=== PATIENT | male | born 1945 | race Caucasian/White ===

== ENCOUNTER 2018-05-18 18:01 | Inpatient (IN) ==
[2018-05-18] MEDS ORDERED: SODIUM CHLORIDE 0.9% 1,000 ML IV STA ×2 (18:46→20:13)
[2018-05-18 19:10] LABS: Basophils % 0.3 % (0.0-0.8); Eosinophils # 0.2 10*3/uL (0.0-0.87); Eosinophils % 2.4 % (0.00-10.9); Hematocrit 35.5 VOL% (42.0-52.0); Hemoglobin 11.9 GM/DL (14.0-18.0); Immature Granulocytes % 1.2 %; Immature Granulocytes Absolute 0.11 #; Lymphocytes # 0.8 10*3/uL (1.4-4.0); Lymphocytes % 9.1 % (21.2-54.2); Mean Corpuscular HGB Conc 33.5 GM/DL (32-36); Mean Corpuscular Hemoglobin 31 PG (27-34); Mean Corpuscular Volume 92.4 FL (87-102); Mean Platelet Volume 9.9 FL (9.6-12.0); Monocytes # 0.7 10*3/uL (0.11-0.8); Neutrophils # 7.1 10*3/uL (1.4-7.4); Platelet Count 199 T/CUMM (130-400); Red Blood Count 3.84 MC/CUMM (3.8-5.5); Red Cell Distribution Width 15.9 % (9.3-17.3); White Blood Count 8.9 T/CUMM (4-12)
[2018-05-18 19:20] LABS: INR 1.1; PT Patient Result 11.4 SECS
[2018-05-18 19:32] LABS: Albumin 2.8 G/DL (3.4-5.0); Bilirubin,Total 0.9 MG/DL (0.2-1.0); Calcium 8.8 MG/DL (8.5-10.1); Potassium 4.1 MMOL/L (3.5-5.1)
[2018-05-18 19:34] LABS: Lactic Acid 2.1 MMOL/L (0.4-2.0); Troponin I 0.62 NG/ML (0.00-0.045)
[2018-05-18 21:45] LABS: Apearance,Urine CLEAR (Clear); Bilirubin,Urine Negative (Negative); Blood, Urine Negative (Negative); Glucose,Urine (UA) >=500 mg/dL (Negative); Hyaline Casts,Urine 2 /LPF (0-3); Ketones,Urine Negative (Negative); Nitrite,Urine Negative (Negative); Protein,Urine 30 MG/DL; RBC,Urine <1 /HPF (0-4); Sperm,Urine Occasional /HPF (Negative); Squamous Epithelial Cell,Urine Occasional /HPF (0-10); Urine Color Yellow (Yellow); Urine Specific Gravity 1.008 (1.001-1.035); Urine Urobilinogen < 2.0 EU/DL (0.2-1.0); WBC,Urine <1 /HPF (0-6)
[2018-05-18] MEDS ORDERED: ACETAMINOPHEN 325 MG TABLET PO PRN (22:50)
[2018-05-18] MEDS ORDERED: ONDANSETRON 4 MG/2 ML VIAL IV PRN (22:50)
[2018-05-18] MEDS ORDERED: GLUCAGON 1 MG VIAL IM PRN (22:55)
[2018-05-18] MEDS ORDERED: DEXTROSE 50% 25 GM/50 ML VIAL IV PRN (22:55)
[2018-05-18 23:55] LABS: Lactic Acid 3.3 MMOL/L (0.4-2.0)
[2018-05-19] MEDS: SODIUM CHLORIDE 0.9% 1,000 ML IV SCH ×2 (01:05→20:59)
[2018-05-19] MEDS: PIPERACILLIN/TAZOBACTAM 3,375 MG in SODIUM CHLORIDE 0.9% 100 ML IV SCH ×3 (01:05→16:35)
[2018-05-19 04:19] LABS: Basophils % 0.3 % (0.0-0.8); Eosinophils # 0.5 10*3/uL (0.0-0.87); Eosinophils % 7.7 % (0.00-10.9); Hematocrit 29.5 VOL% (42.0-52.0); Immature Granulocytes % 1.1 %; Immature Granulocytes Absolute 0.07 #; Lymphocytes # 0.9 10*3/uL (1.4-4.0); Lymphocytes % 14.4 % (21.2-54.2); Mean Corpuscular HGB Conc 33.9 GM/DL (32-36); Mean Corpuscular Hemoglobin 31 PG (27-34); Mean Platelet Volume 9.8 FL (9.6-12.0); Monocytes # 0.5 10*3/uL (0.11-0.8); Monocytes % 7.7 % (1.7-12.7); Neutrophils # 4.5 10*3/uL (1.4-7.4); Neutrophils % 68.8 % (38.7-73.9); Platelet Count 168 T/CUMM (130-400); Red Blood Count 3.24 MC/CUMM (3.8-5.5); Red Cell Distribution Width 15.9 % (9.3-17.3); White Blood Count 6.5 T/CUMM (4-12)
[2018-05-19 04:58] LABS: Lactic Acid 2.1 MMOL/L (0.4-2.0)
[2018-05-19 05:01] LABS: Albumin 2.2 G/DL (3.4-5.0); Bilirubin,Total 0.8 MG/DL (0.2-1.0); Calcium 7.8 MG/DL (8.5-10.1); Osmolality,Calculated 289.8 MOS/KG (273-304); Potassium 3.3 MMOL/L (3.5-5.1); Total Protein 5.6 G/DL (6.4-8.3)
[2018-05-19] MEDS ORDERED: POTASSIUM CHLORIDE 20 MEQ TABLET PO ONE ×2 (06:47→21:07)
[2018-05-19] MEDS: PANTOPRAZOLE 40 MG TABLET PO SCH (08:36)
[2018-05-19] MEDS ORDERED: INSULIN GLARGINE 100 UNIT/ML SUBCUT SCH (09:00)
[2018-05-19] MEDS ORDERED: ENOXAPARIN 30 MG/0.3 ML SYRINGE SUBCUT SCH (09:00)
[2018-05-19] MEDS: ASPIRIN 325 MG TABLET PO SCH (09:32)
[2018-05-19] MEDS: INSULIN LISPRO 100 UNIT/ML SUBCUT SCH ×4 (10:32→20:57)
[2018-05-19] MEDS: ISOSORBIDE MONONITRATE 30 MG TABLET PO SCH (11:59)
[2018-05-19] MEDS: MULTIVITAMIN (BEROCCA) TABLET PO SCH (14:57)
[2018-05-19] MEDS: ENOXAPARIN 80 MG/0.8 ML SYRINGE SUBCUT SCH (14:58)
[2018-05-19] MEDS: POTASSIUM CHLORIDE 20 MEQ TABLET PO SCH ×2 (16:14→16:29)
[2018-05-19] MEDS: FUROSEMIDE 40 MG/4 ML VIAL IV SCH (16:29)
[2018-05-19] MEDS: INSULIN GLARGINE 100 UNIT/ML SUBCUT SCH (20:57)
[2018-05-19] MEDS: CLOPIDOGREL 75 MG TABLET PO SCH (20:57)
[2018-05-19] MEDS: EZETIMIBE/SIMVASTATIN 10-40 MG TABLET PO SCH (20:57)
[2018-05-19] MEDS: METOPROLOL SUCCINATE XL 100 MG TABLET PO SCH (20:58)
[2018-05-19] MEDS ORDERED: ASPIRIN EC 81 MG TABLET PO SCH (21:00)
[2018-05-19] MEDS ORDERED: HYDROmorphone 2 MG/1 ML VIAL IV ONE (21:06)
[2018-05-20] MEDS: PIPERACILLIN/TAZOBACTAM 3,375 MG in SODIUM CHLORIDE 0.9% 100 ML IV SCH ×4 (00:13→23:43)
[2018-05-20 04:51] LABS: Basophils % 0.4 % (0.0-0.8); Eosinophils # 0.5 10*3/uL (0.0-0.87); Eosinophils % 7.2 % (0.00-10.9); Hematocrit 31.4 VOL% (42.0-52.0); Hemoglobin 10.1 GM/DL (14.0-18.0); Immature Granulocytes % 0.8 %; Immature Granulocytes Absolute 0.06 #; Lymphocytes # 0.6 10*3/uL (1.4-4.0); Lymphocytes % 8.8 % (21.2-54.2); Mean Corpuscular HGB Conc 32.2 GM/DL (32-36); Mean Corpuscular Hemoglobin 31 PG (27-34); Mean Corpuscular Volume 95.2 FL (87-102); Mean Platelet Volume 9.5 FL (9.6-12.0); Monocytes # 0.5 10*3/uL (0.11-0.8); Monocytes % 6.4 % (1.7-12.7); Neutrophils # 5.5 10*3/uL (1.4-7.4); Neutrophils % 76.4 % (38.7-73.9); Platelet Count 152 T/CUMM (130-400); Red Cell Distribution Width 16.3 % (9.3-17.3); White Blood Count 7.2 T/CUMM (4-12)
[2018-05-20 05:32] LABS: Albumin 2.1 G/DL (3.4-5.0); Bilirubin,Total 1.1 MG/DL (0.2-1.0); Calcium 8.1 MG/DL (8.5-10.1); Osmolality,Calculated 295.1 MOS/KG (273-304); Potassium 5.1 MMOL/L (3.5-5.1); Total Protein 5.7 G/DL (6.4-8.3)
[2018-05-20 05:35] LABS: % Iron Saturation 12.6 % (18-50)
[2018-05-20 05:43] LABS: Vitamin B12 209 PG/ML (211-911)
[2018-05-20 08:21] LABS: Sedimentation Rate-Westergren 105 MM/HR (0-20)
[2018-05-20] MEDS: FUROSEMIDE 40 MG/4 ML VIAL IV SCH ×2 (08:26→15:40)
[2018-05-20] MEDS: POTASSIUM CHLORIDE 20 MEQ TABLET PO SCH (08:30)
[2018-05-20] MEDS: ISOSORBIDE MONONITRATE 30 MG TABLET PO SCH (08:30)
[2018-05-20] MEDS: PANTOPRAZOLE 40 MG TABLET PO SCH (08:30)
[2018-05-20] MEDS: CHOLECALCIFEROL 1,000 UNIT TABLET PO SCH (08:30)
[2018-05-20] MEDS: ASPIRIN 325 MG TABLET PO SCH (08:30)
[2018-05-20] MEDS: MULTIVITAMIN (BEROCCA) TABLET PO SCH (08:31)
[2018-05-20] MEDS: INSULIN LISPRO 100 UNIT/ML SUBCUT SCH ×4 (10:57→21:29)
[2018-05-20] MEDS: FERROUS SULFATE 325 MG TABLET PO SCH ×3 (12:16→21:28)
[2018-05-20] MEDS: CYANOCOBALAMIN 1000 MCG/1 ML VIAL IM SCH (12:20)
[2018-05-20] MEDS: ENOXAPARIN 80 MG/0.8 ML SYRINGE SUBCUT SCH (12:20)
[2018-05-20] MEDS: METOPROLOL SUCCINATE XL 100 MG TABLET PO SCH (21:26)
[2018-05-20] MEDS: CLOPIDOGREL 75 MG TABLET PO SCH (21:28)
[2018-05-20] MEDS: TAMSULOSIN 0.4 MG CAPSULE PO SCH (21:28)
[2018-05-20] MEDS: FOLIC ACID 1 MG TABLET PO SCH (21:28)
[2018-05-20] MEDS: DUTASTERIDE 0.5 MG CAPSULE PO SCH (21:28)
[2018-05-20] MEDS: INSULIN GLARGINE 100 UNIT/ML SUBCUT SCH (21:28)
[2018-05-20] MEDS: EZETIMIBE/SIMVASTATIN 10-40 MG TABLET PO SCH (21:29)
[2018-05-21 05:52] LABS: Basophils % 0.5 % (0.0-0.8); Eosinophils # 0.8 10*3/uL (0.0-0.87); Eosinophils % 13.3 % (0.00-10.9); Hematocrit 28.6 VOL% (42.0-52.0); Hemoglobin 9.6 GM/DL (14.0-18.0); Immature Granulocytes % 0.6 %; Immature Granulocytes Absolute 0.04 #; Lymphocytes # 1.1 10*3/uL (1.4-4.0); Lymphocytes % 16.8 % (21.2-54.2); Mean Corpuscular HGB Conc 33.6 GM/DL (32-36); Mean Corpuscular Hemoglobin 31 PG (27-34); Mean Corpuscular Volume 91.7 FL (87-102); Monocytes # 0.4 10*3/uL (0.11-0.8); Monocytes % 6.7 % (1.7-12.7); Neutrophils # 3.9 10*3/uL (1.4-7.4); Neutrophils % 62.1 % (38.7-73.9); Platelet Count 161 T/CUMM (130-400); Red Blood Count 3.12 MC/CUMM (3.8-5.5); Red Cell Distribution Width 15.9 % (9.3-17.3); White Blood Count 6.3 T/CUMM (4-12)
[2018-05-21 06:17] LABS: Eosinophils 15 % (0-10); Hypochromasia 1+; Lymphocytes 17 % (20-55); Polychromasia Slight; Segmented Neutrophils 66 % (50-85); Total Cells Counted 100
[2018-05-21 06:18] LABS: Microcytosis Slight; Platelet Estimate Normal
[2018-05-21 06:29] LABS: Bilirubin,Total 0.7 MG/DL (0.2-1.0); Calcium 8.1 MG/DL (8.5-10.1); Osmolality,Calculated 286.1 MOS/KG (273-304); Potassium 4.2 MMOL/L (3.5-5.1); Total Protein 5.4 G/DL (6.4-8.3)
[2018-05-21 07:03] LABS: Sedimentation Rate-Westergren 113 MM/HR (0-20)
[2018-05-21] MEDS: INSULIN LISPRO 100 UNIT/ML SUBCUT SCH ×4 (08:46→22:00)
[2018-05-21 09:42] LABS: Hemoglobin A1 (Alkaline) 97.5 % (96.5-98.5); Hemoglobin A2 (Alkaline) 2.5 % (1.5-3.5)
[2018-05-21] MEDS: PANTOPRAZOLE 40 MG TABLET PO SCH (09:48)
[2018-05-21] MEDS: CHOLECALCIFEROL 1,000 UNIT TABLET PO SCH (09:48)
[2018-05-21] MEDS: MULTIVITAMIN (BEROCCA) TABLET PO SCH (09:48)
[2018-05-21] MEDS: ISOSORBIDE MONONITRATE 30 MG TABLET PO SCH (09:48)
[2018-05-21] MEDS: ASPIRIN 325 MG TABLET PO SCH (09:48)
[2018-05-21] MEDS: PIPERACILLIN/TAZOBACTAM 3,375 MG in SODIUM CHLORIDE 0.9% 100 ML IV SCH ×2 (09:48→16:58)
[2018-05-21] MEDS: FERROUS SULFATE 325 MG TABLET PO SCH ×3 (09:48→21:59)
[2018-05-21] MEDS: POTASSIUM CHLORIDE 20 MEQ TABLET PO SCH (09:48)
[2018-05-21] MEDS: FUROSEMIDE 40 MG/4 ML VIAL IV SCH ×2 (09:49→16:58)
[2018-05-21] MEDS: CYANOCOBALAMIN 1000 MCG/1 ML VIAL IM SCH (09:49)
[2018-05-21] MEDS: ENOXAPARIN 80 MG/0.8 ML SYRINGE SUBCUT SCH (14:47)
[2018-05-21] MEDS: SKIN HEALING OINT (AQUAPHOR) 50 GM TUBE TOP SCH (16:59)
[2018-05-21] MEDS: FOLIC ACID 1 MG TABLET PO SCH (21:58)
[2018-05-21] MEDS: TAMSULOSIN 0.4 MG CAPSULE PO SCH (21:58)
[2018-05-21] MEDS: DUTASTERIDE 0.5 MG CAPSULE PO SCH (21:58)
[2018-05-21] MEDS: traZODone 50 MG TABLET PO SCH (21:59)
[2018-05-21] MEDS: CLOPIDOGREL 75 MG TABLET PO SCH (21:59)
[2018-05-21] MEDS: METOPROLOL SUCCINATE XL 100 MG TABLET PO SCH (22:00)
[2018-05-21] MEDS: INSULIN GLARGINE 100 UNIT/ML SUBCUT SCH (22:00)
[2018-05-21] MEDS: EZETIMIBE/SIMVASTATIN 10-40 MG TABLET PO SCH (22:04)
[2018-05-22] MEDS: PIPERACILLIN/TAZOBACTAM 3,375 MG in SODIUM CHLORIDE 0.9% 100 ML IV SCH ×2 (01:13→09:43)
[2018-05-22 05:32] LABS: Basophils % 0.6 % (0.0-0.8); Eosinophils # 0.9 10*3/uL (0.0-0.87); Hematocrit 29.6 VOL% (42.0-52.0); Hemoglobin 9.9 GM/DL (14.0-18.0); Immature Granulocytes % 0.6 %; Immature Granulocytes Absolute 0.03 #; Lymphocytes # 0.8 10*3/uL (1.4-4.0); Lymphocytes % 15.7 % (21.2-54.2); Mean Corpuscular HGB Conc 33.4 GM/DL (32-36); Mean Corpuscular Hemoglobin 30 PG (27-34); Mean Corpuscular Volume 90.8 FL (87-102); Mean Platelet Volume 10.1 FL (9.6-12.0); Monocytes # 0.4 10*3/uL (0.11-0.8); Monocytes % 7.4 % (1.7-12.7); Neutrophils # 3.2 10*3/uL (1.4-7.4); Neutrophils % 59.7 % (38.7-73.9); Platelet Count 176 T/CUMM (130-400); Red Blood Count 3.26 MC/CUMM (3.8-5.5); Red Cell Distribution Width 16.1 % (9.3-17.3); White Blood Count 5.3 T/CUMM (4-12)
[2018-05-22 05:50] LABS: Calcium 7.9 MG/DL (8.5-10.1); Osmolality,Calculated 282.4 MOS/KG (273-304); Potassium 3.6 MMOL/L (3.5-5.1)
[2018-05-22 05:59] LABS: Atypical Lymphocytes Few; Band Neutrophils 5 % (0-10); Eosinophils 16 % (0-10); Hypochromasia Slight; Lymphocytes 17 % (20-55); Metamyelocytes 2 %; Platelet Estimate Normal; Segmented Neutrophils 51 % (50-85); Total Cells Counted 100
[2018-05-22] MEDS: CYANOCOBALAMIN 1000 MCG/1 ML VIAL IM SCH (09:40)
[2018-05-22] MEDS: FUROSEMIDE 40 MG/4 ML VIAL IV SCH ×2 (09:41→15:11)
[2018-05-22] MEDS: POTASSIUM CHLORIDE 20 MEQ TABLET PO SCH (09:41)
[2018-05-22] MEDS: ASPIRIN 325 MG TABLET PO SCH (09:41)
[2018-05-22] MEDS: PANTOPRAZOLE 40 MG TABLET PO SCH (09:41)
[2018-05-22] MEDS: ISOSORBIDE MONONITRATE 30 MG TABLET PO SCH (09:41)
[2018-05-22] MEDS: MULTIVITAMIN (BEROCCA) TABLET PO SCH (09:42)
[2018-05-22] MEDS: SKIN HEALING OINT (AQUAPHOR) 50 GM TUBE TOP SCH (09:42)
[2018-05-22] MEDS: FERROUS SULFATE 325 MG TABLET PO SCH ×3 (09:42→21:56)
[2018-05-22] MEDS: INSULIN LISPRO 100 UNIT/ML SUBCUT SCH ×3 (09:42→15:52)
[2018-05-22] MEDS: CHOLECALCIFEROL 1,000 UNIT TABLET PO SCH (09:42)
[2018-05-22] MEDS: ENOXAPARIN 80 MG/0.8 ML SYRINGE SUBCUT SCH (13:18)
[2018-05-22] MEDS: CLINDAMYCIN 150 MG CAPSULE PO SCH ×2 (13:18→21:55)
[2018-05-22] MEDS ORDERED: EZETIMIBE 10 MG TABLET PO SCH (21:00)
[2018-05-22] MEDS ORDERED: SIMVASTATIN 40 MG TABLET PO SCH (21:00)
[2018-05-22] MEDS: FOLIC ACID 1 MG TABLET PO SCH (21:55)
[2018-05-22] MEDS: DUTASTERIDE 0.5 MG CAPSULE PO SCH (21:55)
[2018-05-22] MEDS: traZODone 50 MG TABLET PO SCH (21:55)
[2018-05-22] MEDS: CLOPIDOGREL 75 MG TABLET PO SCH (21:56)
[2018-05-22] MEDS: INSULIN GLARGINE 100 UNIT/ML SUBCUT SCH (21:56)
[2018-05-22] MEDS: METOPROLOL SUCCINATE XL 100 MG TABLET PO SCH (21:57)
[2018-05-22] MEDS: TAMSULOSIN 0.4 MG CAPSULE PO SCH (22:01)
[2018-05-23] MEDS: INSULIN LISPRO 100 UNIT/ML SUBCUT SCH ×3 (02:24→12:30)
[2018-05-23 06:44] LABS: Basophils % 0.6 % (0.0-0.8); Eosinophils # 0.8 10*3/uL (0.0-0.87); Eosinophils % 15.1 % (0.00-10.9); Hematocrit 31.6 VOL% (42.0-52.0); Hemoglobin 10.5 GM/DL (14.0-18.0); Immature Granulocytes % 1.7 %; Immature Granulocytes Absolute 0.09 #; Lymphocytes # 0.9 10*3/uL (1.4-4.0); Lymphocytes % 17.1 % (21.2-54.2); Mean Corpuscular HGB Conc 33.2 GM/DL (32-36); Mean Corpuscular Hemoglobin 31 PG (27-34); Mean Corpuscular Volume 93.8 FL (87-102); Mean Platelet Volume 9.7 FL (9.6-12.0); Monocytes # 0.5 10*3/uL (0.11-0.8); Monocytes % 8.8 % (1.7-12.7); Neutrophils # 3.1 10*3/uL (1.4-7.4); Neutrophils % 56.7 % (38.7-73.9); Platelet Count 175 T/CUMM (130-400); Red Blood Count 3.37 MC/CUMM (3.8-5.5); Red Cell Distribution Width 16.2 % (9.3-17.3); White Blood Count 5.4 T/CUMM (4-12)
[2018-05-23] MEDS ORDERED: CLINDAMYCIN 150 MG CAPSULE PO ONE (07:00)
[2018-05-23 07:10] LABS: Band Neutrophils 1 % (0-10); Eosinophils 16 % (0-10); Lymphocytes 9 % (20-55); Segmented Neutrophils 63 % (50-85); Total Cells Counted 100
[2018-05-23 07:11] LABS: Hypochromasia Slight; Microcytosis 1+; Polychromasia Slight
[2018-05-23 07:12] LABS: Platelet Estimate Adequate
[2018-05-23 07:21] LABS: Calcium 8.2 MG/DL (8.5-10.1); Osmolality,Calculated 286.4 MOS/KG (273-304); Potassium 3.4 MMOL/L (3.5-5.1)
[2018-05-23] MEDS: FUROSEMIDE 40 MG/4 ML VIAL IV SCH (08:34)
[2018-05-23] MEDS: CHOLECALCIFEROL 1,000 UNIT TABLET PO SCH (08:35)
[2018-05-23] MEDS: FERROUS SULFATE 325 MG TABLET PO SCH (08:35)
[2018-05-23] MEDS: MULTIVITAMIN (BEROCCA) TABLET PO SCH (08:35)
[2018-05-23] MEDS: POTASSIUM CHLORIDE 20 MEQ TABLET PO SCH (08:35)
[2018-05-23] MEDS: PANTOPRAZOLE 40 MG TABLET PO SCH (08:35)
[2018-05-23] MEDS: ISOSORBIDE MONONITRATE 30 MG TABLET PO SCH (08:35)
[2018-05-23] MEDS: ASPIRIN 325 MG TABLET PO SCH (08:35)
[2018-05-23] MEDS: CLINDAMYCIN 150 MG CAPSULE PO SCH (08:35)
[2018-05-23 12:19] VITALS: BP 104/58
[2018-05-23] MEDS: ENOXAPARIN 80 MG/0.8 ML SYRINGE SUBCUT SCH (12:30)
== END 2018-05-23 14:30 | disposition swing bed (61) | DRG 280 ==
LOC: EDBD → EDUNIT# → N.ED 18:01 → SUATTDRO 22:50 → N.EDINP 22:50 → N.5E 23:41
PROVIDERS: ADMIT Hospitalist; ATTEND Internal Medicine